=== PATIENT | female | born 1965 | race Caucasian/White ===

== ENCOUNTER → 2016-10-04 | Outpatient (CLI) | payer OTHER ==
[~2016-10-04] MED LIST: ASPI1TAB PO; FISHCAP PO; MULTTAB PO; motrin PO; vicodin PO
[2016-10-04 08:44] LABS: ALBUMIN 3.6 GM/DL (3.2-5.2); ALBUMIN/GLOBULIN RATIO 1.06 (1.00-1.93); ALKALINE PHOSPHATASE 81 U/L (45-117); ALT/SGPT 27 U/L (12-78); ANION GAP 10 MEQ/L (8-16); AST/SGOT 14 U/L (15-37); BILIRUBIN,TOTAL 0.3 MG/DL (0.2-1.0); BLOOD UREA NITROGEN 16 MG/DL (7-18); CALCIUM LEVEL 8.8 MG/DL (8.5-10.1); CARBON DIOXIDE LEVEL 27 MEQ/L (21-32); CHLORIDE LEVEL 106 MEQ/L (98-107); CHOLESTEROL LEVEL 216 MG/DL (<200); CREATININE FOR GFR 0.59 MG/DL (0.55-1.02); GLOMERULAR FILTRATION RATE > 60.0 (>51); GLUCOSE, FASTING 93 MG/DL (70-105); POTASSIUM SERUM 4.1 MEQ/L (3.5-5.1); SODIUM LEVEL 143 MEQ/L (136-145); TRIGLYCERIDES LEVEL 99 MG/DL (<150)
== END ==
LOC: M LAB 07:31
PROVIDERS: ATTEND Emergency Medicine
DX: Z00.00 Encounter for general adult medical examination without abnormal findings (principal)

== ENCOUNTER 2017-03-02 09:12 | Outpatient (CLI) | payer OTHER ==
[~2017-03-02] VITALS: Ht 162.6 cm; Wt 63.5 kg
[~2017-03-02 09:12] MED LIST changes: +CRAN500C2 PO; +HAIR1CAP2 PO
[2017-03-02] MEDS ORDERED: NS 1,000 ML IV ONE (09:30)
[2017-03-02] MEDS ORDERED: PROPOFOL 200 MG/20 ML VIAL As Ordered ONE ×2 (10:08→10:46)
[2017-03-02] MEDS ORDERED: FISH100049 PO (10:15)
[2017-03-02] MEDS ORDERED: MULT1CHW39 PO (10:15)
--- NOTE | 2017-03-02 10:56 | ROOR ---
Patient Name: Soledad Valentine Procedure Date: 03/02/2017 10:29 AM Date of : 1965 Age: 52 Room: [facility] Gender: Female Note Status: Finalized Procedure: Colonoscopy Indications: Screening for colorectal malignant neoplasm Providers: DO Dawson Bertrand MD: AARON CUELLO MD Requesting Provider: Medicines: Propofol per Anesthesia Complications: No immediate complications. Procedure: Pre-Anesthesia Assessment: - Prior to the procedure, a History and Physical was performed, and patient medications and allergies were reviewed. The patient is competent. The risks and benefits of the procedure and the sedation options and risks were discussed with the patient. All questions were answered and informed consent was obtained. Patient identification and proposed procedure were verified by the physician, the nurse, the anesthesiologist and the dye lab technician in the endoscopy suite. Mental Status Examination: alert and oriented. Airway Examination: normal oropharyngeal airway and neck mobility. Respiratory Examination: clear to auscultation. CV Examination: normal. Prophylactic Antibiotics: The patient does not require prophylactic antibiotics. Prior Anticoagulants: The patient has taken no previous anticoagulant or antiplatelet agents. ASA Grade Assessment: II - A patient with mild systemic disease. After reviewing the risks and benefits, the patient was deemed in satisfactory condition to undergo the procedure. The anesthesia plan was to use monitored anesthesia care (MAC). Immediately prior to administration of medications, the patient was re-assessed for adequacy to receive sedatives. The heart rate, respiratory rate, oxygen saturations, blood pressure, adequacy of pulmonary ventilation, and response to care were monitored throughout the procedure. The physical status of the patient was re-assessed after the procedure. The Colonoscope was introduced through the anus and advanced to the cecum, identified by appendiceal orifice and ileocecal valve. The colonoscopy was performed without difficulty. The patient tolerated the procedure well. Findings: The entire examined colon appeared normal on direct and retroflexion views. Impression: - The entire examined colon is normal on direct and retroflexion views. - No specimens collected. Recommendation: - Patient has a contact number available for emergencies. The signs and symptoms of potential delayed complications were discussed with the patient. Return to normal activities tomorrow. Written discharge instructions were provided to the patient. - Repeat colonoscopy in 5-10 years for screening purposes. - Return to my office PRN. Temo Lim DO 03/02/2017 10:56:15 AM This report has been signed electronically. Number of Addenda: 0 Note Initiated On: 03/02/2017 10:29 AM Estimated Blood Loss: Estimated blood loss: none.
[2017-03-02 11:15] VITALS: BP 141/80
== END 2017-03-02 12:00 | disposition home or self-care (01) ==
LOC: M OPP 09:12
PROVIDERS: ATTEND Surgery
DX: Z12.11 Encounter for screening for malignant neoplasm of colon (principal); R00.8 Other abnormalities of heart beat; F41.9 Anxiety disorder, unspecified; R51 Headache; Z87.442 Personal history of urinary calculi